=== PATIENT | male | born 1965 | race Caucasian/White ===

== ENCOUNTER 2017-06-01 14:16 | Observation (INO) ==
[2017-06-01] MEDS ORDERED: *HR* Morphine 2 MG/ML SYRINGE IVP ONE (15:13)
--- NOTE | 2017-06-01 15:14 | Emergency Department Note ---
START Narrative - START START: I examined this patient and my medical decision-making was reviewed with the AMMONIA WORKER/PA/Advanced Practice Nurse/Resident Physician. I agree with the documented findings, disposition and treatment plan as described except to the extent set forth below. ED attending: Patient's emergency medicine resident Dr. Dony Rousseau. Please see copy of this note for H&P evaluation and management and ED disposition. We both had independent [id number] time in contact with this patient. Briefly: A 52-year-old male presents to the ER with left lower calf pain since . Diagnosed with a melanoma which was excised a year ago but did not go for follow-up or any further treatment. Denies shortness of breath or chest pain. Denies fever or chills. Denies any inciting factors or trauma. Does not smoke. Has prior history of DVT for unknown reasons. Patient will get an ultrasound and we will also do a CT to check for a metastatic lesion. Disposition pending.
--- NOTE | 2017-06-01 15:33 | Emergency Department Note ---
Disposition Clinical Impression: Cellulitis and abscess of leg Disposition: Admitted As Inpatient Condition: Good Extremity Problem HPI - General Chief complaint: ED Extremity Problem,Nontraumatic Stated complaint: Skin cancer on leg Time Seen by Provider: 06/01/17 14:54 Source: patient Mode of arrival: private vehicle Limitations: no limitations Nursing Notes Reviewed: Yes Vital Signs Reviewed: Yes - History of Present Illness HPI Narrative: 52-year-old male history of diabetes, prior melanoma in the left lower extremity treated with excision with poor follow-up who presents to the ER with a chief complaint of left function any pain. Patient reports pain and swelling since May 28. Denies any trauma. States it has just been enlarging and turning red. He reports a prior history of DVT but it has been several years ago. He is not currently on anticoagulation. Denies any fevers cough sore throat chest pain or shortness of breath. Up-to-date on tetanus. States the wound has been weeping. No other complaints. Pt Subjective Complaint: extremity pain, extremity swelling Onset (ago): day(s) Consistency: constant Injury Location: left, lower extremity Pain Scale: 10 Radiation: none Improves with: rest Worsens with: weight bearing Associated symptoms: Reports: denies other symptoms Context: history of DVT, history of peripheral vascular disease - Related Data Home Medications Medication Instructions Recorded Confirmed Albuterol Sulfate [Proair HFA] 2 puff IH Q4HR PRN 01/14/15 06/01/17 Esomeprazole Magnesium [Nexium] 40 mg PO DAILY 01/14/15 06/01/17 Furosemide [Lasix] 80 mg PO DAILY PRN 01/14/15 06/01/17 Loratadine [Claritin] 10 mg PO DAILY 01/14/15 06/01/17 Metformin [Glucophage] 1,000 mg PO BID 01/14/15 06/01/17 Pravastatin Sodium [Pravachol] 20 mg PO HS 01/14/15 06/01/17 Amlodipine Besylate 10 mg PO DAILY 06/01/17 06/01/17 Aspirin Enteric Coated [Aspirin EC] 81 mg PO DAILY 06/01/17 06/01/17 Divalproex (12 HR) [Depakote (12 1,000 mg PO HS 06/01/17 06/01/17 HR)] Divalproex (12 HR) [Depakote (12 500 mg PO QAM 06/01/17 06/01/17 HR)] Fluticasone/Salmeterol [Advair 1 each IH BID 06/01/17 06/01/17 500-50 Diskus] HYDROcodone/Acet 7.5/325 mg [[place] 1 tab PO BID PRN 06/01/17 06/01/17 7.5-325 mg] Ipratropium [Atrovent Inhaler] 2 puff IH QID 06/01/17 06/01/17 Levothyroxine Sodium 50 mcg PO QAM 06/01/17 06/01/17 Lisinopril-HCTZ 20-12.5 [Prinzide 1 tab PO BID 06/01/17 06/01/17 20-12.5] Oxygen 3 l NS CONT 06/01/17 06/01/17 Polyethylene Glycol 3350 17 gm PO DAILY 06/01/17 06/01/17 Potassium Chloride [K-Tab ER] 20 meq PO DAILY 06/01/17 06/01/17 Pregabalin [Lyrica] 75 mg PO TID 06/01/17 06/01/17 SitaGLIPtin [Januvia] 100 mg PO DAILY 06/01/17 06/01/17 Spironolactone [Aldactone] 100 mg PO DAILY 06/01/17 06/01/17 Trazodone HCl 300 mg PO HS 06/01/17 06/01/17 Allergies Allergy/AdvReac Type Severity Reaction Status Date / Time Penicillins [PCN] Allergy Rash Verified 06/01/17 14:24 All systems ED: reviewed and negative except as stated. Constitutional: Denies: fever, chills Cardiovascular: Denies: chest pain Respiratory: Denies: dyspnea Gastrointestinal: Denies: abdominal pain, nausea, vomiting Integumentary: Reports: lesions Past Medical History - Past Medical History Attestation: Yes The following information was validated with the patient. Source: patient Medical history: Reports: arthritis, cancer, CHF, COPD, diabetes, GERD, hyperlipidemia, hypertension, kidney stones, thyroid disease, venous stasis Surgical history: Reports: other Psychiatric history: Reports: no psych history - Social History Smoking Status: Current every day smoker Smokeless Tobacco Status: No Alcohol use: Reports: none Drug use: Reports: none Physical Exam - General Limitations: no limitations General appearance: alert, in no apparent distress - Head Head exam: atraumatic, normocephalic - Eye Eye exam: Present: normal appearance - ENT ENT exam: normal exam - Neck Neck exam: Present: normal inspection, full ROM - Chest Chest inspection: Present: normal inspection, symmetric chest wall rise - Respiratory Respiratory exam: Present: normal lung sounds bilaterally - Cardiovascular Cardiovascular exam: Present: regular rate, normal rhythm, normal heart sounds - Abdominal Exam Abdominal exam: Present: soft, Non-Tender. Absent: tenderness - Extremities Exam Extremities exam: Present: normal inspection, full ROM - Expanded Upper Extremity Exam Shoulder exam: Present: normal inspection, full ROM Arm exam: Present: normal inspection, full ROM Elbow exam: Present: normal inspection, full ROM Forearm/Wrist exam: Present: normal inspection, full ROM Hand exam: Present: normal inspection, full ROM - Expanded Lower Extremity Exam Hip/Pelvis exam: Present: normal inspection, full ROM Upper leg exam: Present: normal inspection, full ROM Knee exam: Present: normal inspection, full ROM Lower leg exam: Present: full ROM, swelling (There is noted swelling of the left lower extremity distal to the knee with overlying cellulitic changes as well as an area of fluctuance anteriorly. Patient also has tenderness to palpation over the deep system of the left leg.) Ankle exam: Present: full ROM Foot/toe exam: Present: full ROM Neurovascular/Tendon exam: Absent: motor deficit, sensory deficit - Neurological Exam Neurological exam: Present: alert, other (GCS 15. Nonfocal exam.) - Psychiatric Psychiatric exam: Present: normal affect - Skin Skin exam: Present: warm, dry, intact Course Course Narrative: Patient seen and examined. Vital signs reviewed. We will obtain a DVT study as well as a CT scan of the lower extremity to evaluate for abscess versus metastatic process from his primary skin cancer. Patient given IV morphine for pain. - Reevaluation(s) Reevaluation #1: Updated the patient on imaging and labs. He is agreeable with being admitted. - Consultations Consultation #1: I spoke with the on-call orthopedic surgeon Dr. Dasilva. Discussed the patient's history exam imaging and labs. Recommended to start IV antibiotics and admit to the hospitalist service and he will see the patient tomorrow. Vital Signs Temperature 97.6 F 06/01/17 14:20 Pulse Rate 80 06/01/17 14:20 Respiratory Rate 18 06/01/17 14:20 Blood Pressure 98/61 06/01/17 14:20 O2 Sat by Pulse Oximetry 95 06/01/17 14:20 Temperature 98.7 F 06/02/17 07:28 Pulse Rate 69 06/02/17 07:28 Respiratory Rate 16 06/02/17 07:28 Blood Pressure 108/65 06/02/17 07:28 O2 Sat by Pulse Oximetry 94 06/02/17 07:28 Oxygen Delivery Oxygen Delivery Nasal Cannula Extremity Problem, Nontraumati - MDM Narrative Medical decision making narrative: 52-year-old male presents to the ER due to left lower extremity swelling for 4 days. Denies any trauma. History of melanoma around that site that was excised without issue. DVT study negative here. CT scan demonstrates a large abscess collection with overlying cellulitis. Discussed with orthopedic surgery who will see the patient consultation for incision and drainage. IV antibiotics initiated in the ED. Admitted to the hospitalist service. - Lab Data Lab results reviewed: Yes I reviewed the patient's lab results. Result diagrams: 06/02/17 06:08 06/02/17 06:08 Lab Results 06/01/17 06/01/17 06/01/17 Range/Units 15:30 15:30 15:30 WBC 10.7 (4.3-11.1) K/mcL RBC 4.13 L (4.19-5.50) M/mcL Hgb 13.3 (12.9-16.9) g/dL Hct 40.5 (37.5-50.1) % MCV 98.1 (83.0-100.0) fL MCH 32.2 (28.0-33.3) pg MCHC 32.8 (31.6-35.5) g/dL RDW 14.2 (11.5-14.5) % Plt Count 139 L (140-400) K/mcL MPV 11.3 (9.4-12.4) fL Seg Neutrophils % 72.0 % Band Neutrophils % 4.0 (0-4) % Lymphocytes % 14.0 % Monocytes % 10.0 % Neutrophils # 8.1 (1.6-8.9) K/mcL Lymphocytes # 1.5 (0.6-4.6) K/mcL Monocytes # 1.1 (0.0-1.3) K/mcL Reactive Lymphocytes Present A (Not Present) Platelet Estimate Slight Decrease L (Normal) ESR 98 H (0-10) mm/hr Sodium 137 (136-145) mEq/L Potassium 4.6 (3.5-5.1) mEq/L Chloride 107 (98-107) mEq/L Carbon Dioxide 22 L (23-29) mEq/L BUN 32 H (6-20) mg/dL Creatinine 1.11 (0.70-1.30) mg/dL Est GFR ( Amer) > 60 (> 60) Est GFR (Non-Af Amer) > 60 (> 60) BUN/Creatinine Ratio 29 H (6-26) Glucose 151 H (70-105) mg/dL Calculated Osmolality 294 (280-300) Calcium 8.9 (8.6-10.3) mg/dL C-Reactive Protein (Less than 10) mg/L 06/01/17 Range/Units 15:30 WBC (4.3-11.1) K/mcL RBC (4.19-5.50) M/mcL Hgb (12.9-16.9) g/dL Hct (37.5-50.1) % MCV (83.0-100.0) fL MCH (28.0-33.3) pg MCHC (31.6-35.5) g/dL RDW (11.5-14.5) % Plt Count (140-400) K/mcL MPV (9.4-12.4) fL Seg Neutrophils % % Band Neutrophils % (0-4) % Lymphocytes % % Monocytes % % Neutrophils # (1.6-8.9) K/mcL Lymphocytes # (0.6-4.6) K/mcL Monocytes # (0.0-1.3) K/mcL Reactive Lymphocytes (Not Present) Platelet Estimate (Normal) ESR (0-10) mm/hr Sodium (136-145) mEq/L Potassium (3.5-5.1) mEq/L Chloride (98-107) mEq/L Carbon Dioxide (23-29) mEq/L BUN (6-20) mg/dL Creatinine (0.70-1.30) mg/dL Est GFR ( Amer) (> 60) Est GFR (Non-Af Amer) (> 60) BUN/Creatinine Ratio (6-26) Glucose (70-105) mg/dL Calculated Osmolality (280-300) Calcium (8.6-10.3) mg/dL C-Reactive Protein 103 H (Less than 10) mg/L - Radiology Data Radiology results reviewed: Yes I reviewed the patient's radiology results. Lower Extremity CT 06/01/17 15:12 IMPRESSION: 1. Extensive soft tissue edema and skin thickening of the left lower extremity most compatible with cellulitis. There is also a large rim enhancing fluid collection within the anterior subcutaneous tissues at the level of the mid tibia measuring 1.6 x 8.4 x 9.3 cm. Findings most suggestive of abscess. 2. No evidence for osteomyelitis. 3. Tricompartmental osteoarthritis of the knee. 4. Mild osteoarthritis of the midfoot. 5. Chondrocalcinosis of the medial and lateral compartments of the knee. D/ / Brigido Ortiz MD / Brigido Ortiz MD Interpreting Provider: Brigido Ortiz MD S.BDevyn - Kajal Situation: Demographics, MOA Background: Presenting Complaint, Relevant PMH, Meds, & Allergies Assessment: Course and respsone to treatment, Exam Concerns, Patient/Family Expectation, Pertinant Lab Results Recommendation: Barrier(s) to disposition, Recommendation based on pending studies, treatments, or consults S.Linette Report Given to: Dr. Doc Rdz Repor Time: 18:10 (requests nephrology consult)
[2017-06-01 15:42] LABS: Hematocrit 40.5 % (37.5-50.1); Hemoglobin 13.3 g/dL (12.9-16.9); Lymphocytes # 1.5 K/mcL (0.6-4.6); Mean Corpuscular HGB Conc 32.8 g/dL (31.6-35.5); Mean Corpuscular Hemoglobin 32.2 pg (28.0-33.3); Mean Corpuscular Volume 98.1 fL (83.0-100.0); Mean Platelet Volume 11.3 fL (9.4-12.4); Platelet Count 139 K/mcL (140-400); Red Blood Count 4.13 M/mcL (4.19-5.50); Red Cell Distribution Width 14.2 % (11.5-14.5)
[2017-06-01] MEDS ORDERED: Ondansetron 4 MG/2 ML VIAL IVP ONE (15:43)
[2017-06-01 15:50] LABS: BUN/Creatinine Ratio 29 (6-26); Blood Urea Nitrogen 32 mg/dL (6-20); Calcium 8.9 mg/dL (8.6-10.3); Carbon Dioxide 22 mEq/L (23-29); Chloride 107 mEq/L (98-107); Glucose 151 mg/dL (70-105); Osmolality,Calculated 294 (280-300); Potassium 4.6 mEq/L (3.5-5.1); Sodium 137 mEq/L (136-145); eGFR For African Americans > 60 (> 60); eGFR For Non-African Americans > 60 (> 60)
[2017-06-01 16:07] LABS: Monocytes # 1.1 K/mcL (0.0-1.3); Neutrophils # 8.1 K/mcL (1.6-8.9); Platelet Estimate Slight Decrease (Normal); Reactive Lymphocytes Present (Not Present)
[2017-06-01] MEDS ORDERED: Vancomycin 2,000 MG in D5% in Water 500 ML IVPB ONE (17:34)
[2017-06-01] MEDS ORDERED: Clindamycin 600 MG/50 ML 600 MG/50 ML IV.SOLN IVPB ONE (17:34)
[2017-06-01] MEDS ORDERED: Acetaminophen 325 MG TABLET PO PRN (20:23)
[2017-06-01] MEDS ORDERED: Naloxone 0.4 MG/ML INJ IVP PRN (20:23)
--- NOTE | 2017-06-01 20:23 | Internal Med History&Physical ---
<Lauren Bhatt - Last Filed: 06/01/17 21:56> Date of Encounter: 06/01/17 Time of Encounter: 21:56 Assessment and Plan (1) Cellulitis and abscess of leg Current visit: Yes Status: Acute Patient's left lower extremity is swollen, erythematous, and mildly weeping. The patient's left calf and foot is very tender to palpation. CT of LLE shows cellulitis and abscess within the anterior subcutaneous tissues at the level of the mid tibia measuring 1.6 x 8.4 x 9.3 cm. No evidence for osteomyelitis. Venous doppler of LLE is negative for DVT. 1.Orthopedic surgeon will see patient tomorrow morning. 2. Will give IV vancomycin 3. Will give fluids. 4. Will order blood culturesx2. 5. Pain control. (2) Diabetes mellitus Current visit: Yes Status: Acute Will place patient on sliding scale and continue to monitor. Qualifiers: Qualified Code(s): E11.9 - Type 2 diabetes mellitus without complications (3) Emphysema of lung Current visit: Yes Status: Acute Patient complains of SOB. Breathing is better with nasal cannula per patient. Will ordere CXR and DUOneb treatments. Qualifiers: Qualified Code(s): J43.9 - Emphysema, unspecified (4) Melanoma Current visit: Yes Status: Acute Qualifiers: Melanoma location: unspecified site Qualified Code(s): C43.9 - Malignant melanoma of skin, unspecified (5) History of DVT (deep vein thrombosis) Current visit: Yes Status: Acute Will place on DVT prophylaxis. Internal Medicine - H&P: HPI Chief complaint: cellulitis of LLE Admitted From: Emergency Dept History of present illness: Mr. Dunbar is a 52 year old male with a PMHx of cellulitis, DVT, DM, melanoma, PR, and emphysema who presents to the ED for left lower calf pain and swelling. The patient states that he had left calf pain and worsening of lower left leg swelling that started on Jameel rachel. The patient admits his left lower leg and calf is painful to touch, became more swollen over the last few days, and admits more reddening of his left leg. The patient admits fever and chills that started two days ago with a highest temperature of 102. He also admits shortness of breath that is worsening over the last week. The patient admits he is on 3L of oxygen at home. He denies any new numbness or tingling. He denies any recent travel, recent illness, sick contacts, any trauma. He denies any chest pain, difficulty breathing, new cough, congestion, abdominal pain, diarrhea, blood in stool, changes in urination, and any weaknesses. Past Med Surg Social Fam HX - Past Medical History Medical history: arthritis, cancer, cirrhosis, CHF, COPD, CVA, DVT, diabetes, GERD, hyperlipidemia, hypertension, kidney stones, malignancy, myocardial infarction, thyroid disease, venous stasis Psychiatric history: no psych history - Past Surgical History Surgical History: other - Social History Smoking Status: Former smoker Smokeless Tobacco Status: No Alcohol use: none Drug use: none - Family History Mother History Unknown: Yes Adopted: No Living Status: Hx Family Cancer: Yes (Brain cancer) Father History Unknown: Yes Adopted: No Living Status: Hx Family Cancer: Yes (Pancreatic CA) Internal Medicine - H&P: Meds Albuterol Sulfate [Proair HFA] 2 puff IH Q4HR PRN 01/14/15 [History] Esomeprazole Magnesium [Nexium] 40 mg PO DAILY 01/14/15 [History] Furosemide [Lasix] 80 mg PO DAILY PRN 01/14/15 [History] Loratadine [Claritin] 10 mg PO DAILY 01/14/15 [History] Metformin [Glucophage] 1,000 mg PO BID 01/14/15 [History] Pravastatin Sodium [Pravachol] 20 mg PO HS 01/14/15 [History] Amlodipine Besylate 10 mg PO DAILY 06/01/17 [History] Aspirin Enteric Coated [Aspirin EC] 81 mg PO DAILY 06/01/17 [History] Divalproex (12 HR) [Depakote (12 HR)] 1,000 mg PO HS 06/01/17 [History] Divalproex (12 HR) [Depakote (12 HR)] 500 mg PO QAM 06/01/17 [History] Fluticasone/Salmeterol [Advair 500-50 Diskus] 1 each IH BID 06/01/17 [History] HYDROcodone/Acet 7.5/325 mg [[place] 7.5-325 mg] 1 tab PO BID PRN 06/01/17 [ History] Ipratropium [Atrovent Inhaler] 2 puff IH QID 06/01/17 [History] Levothyroxine Sodium 50 mcg PO QAM 06/01/17 [History] Lisinopril-HCTZ 20-12.5 [Prinzide 20-12.5] 1 tab PO BID 06/01/17 [History] Oxygen 3 l NS CONT 06/01/17 [History] Polyethylene Glycol 3350 17 gm PO DAILY 06/01/17 [History] Potassium Chloride [K-Tab ER] 20 meq PO DAILY 06/01/17 [History] Pregabalin [Lyrica] 75 mg PO TID 06/01/17 [History] SitaGLIPtin [Januvia] 100 mg PO DAILY 06/01/17 [History] Spironolactone [Aldactone] 100 mg PO DAILY 06/01/17 [History] Trazodone HCl 300 mg PO HS 06/01/17 [History] 3 Allergy/AdvReac Type Severity Reaction Status Date / Time Penicillins [PCN] Allergy Rash Verified 06/01/17 14:24 All Systems PM: A 10-system review of systems was performed and is negative for pertinent findings except as documented above in the HPI. - Constitutional Vitals: Temp Pulse Resp BP Pulse Ox 98.1 F 72 18 100/63 95 06/01/17 18:58 06/01/17 18:58 06/01/17 18:58 06/01/17 18:58 06/01/17 18:58 General appearance: Present: A&O X 3, morbidly obese. Absent: no acute distress - Head Head exam: Present: atraumatic, normocephalic - Eye Eye exam: Present: PERRL, conjuntiva pink, sclera anicteric Pupils: Present: PERRL - Neck Neck exam general surgery: Present: supple, trachea midline. Absent: lymphadenopathy - Respiratory Respiratory exam: Present: CTAB, wheezes. Absent: accessory muscle use, rales, rhonchi - Expanded Respiratory Exam Location: wheezes: Left, Right - Cardiovascular Cardiovascular exam: Present: RRR, +S1, +S2. Absent: diastolic murmur, gallop, rubs, systolic murmur - GI/Abdominal GI/Abdominal exam: Present: normal bowel sounds, soft, no peritoneal signs. Absent: distended, tenderness - Extremities Exam Extremities exam: Present: calf tenderness, tenderness, warm, radial pulses palpable and symmetrical. Absent: cyanotic, pedal edema - Expanded Lower Extremities Exam Lower Leg exam: Present: ecchymosis, erythema (Left leg), swelling (on the left lower extremity), tenderness (tenderness to palpation on the left calf and foot) . Absent: laceration Ankle exam: Present: swelling, tenderness Foot/Toe exam: Present: erythema, swelling, tenderness Neuro vascular tendon exam: Present: pulse deficit (Dorsalis pedis pulse in the R>L. Left dorsal pedis pulse +1), sensory deficit. Absent: foot drop, motor deficit - Neurological Exam Neurological exam: Present: CN II-XII intact, oriented X3, no focal deficits. Absent: motor sensory deficit, pronater drift, facial droop, speech deficit - Skin Skin exam: Present: dry, intact Internal Med - H&P Results - Labs CBC & Chem 7: 06/01/17 15:30 06/01/17 15:30 <Clair El - Last Filed: 06/01/17 23:20> Date of Encounter: 06/01/17 Internal Medicine - H&P: HPI History of present illness: Mr. Dunbar is a 52 year old male All Systems PM: A 10-system review of systems was performed and is negative for pertinent findings except as documented above in the HPI. - Constitutional Vitals: Temp Pulse Resp BP Pulse Ox 98.1 F 72 18 100/63 98 06/01/17 18:58 06/01/17 18:58 06/01/17 22:57 06/01/17 18:58 06/01/17 22:57 Internal Med - H&P Results - Labs CBC & Chem 7: 06/01/17 15:30 06/01/17 15:30 - Impressions ITS Impressions Chest X-Ray 06/01/17 20:27 IMPRESSION: Left basilar airspace disease, atelectasis or pneumonia. D/ / Sharron Bradley Cha, MD / Sharron Bradley Cha, MD Interpreting Provider: Sharron Bradley Cha, MD - Attending Attestation I examined this patient and my medical decision-making was reviewed with the Resident Physician. I agree with the documented findings, disposition and treatment plan as described except to the extent set forth below. General - AAO x 3 Psych - Appropriate affect/speech. No agitation Eyes - CRYSTAL. Eye lids intact. No scleral icterus Heart - Sinus. RRR. S1 and S2 present. No added HS/murmurs appreciated. No elevated JVD appreciated. Lung - Adequate air entry b/l, No crackles/wheezes appreciated GI - Soft, non-tender. No hepatosplenomegaly/ascites. BS+ - No CVA/suprapubic tenderness or palpable bladder distension Skin - Left edwards erythema and swelling ROS 14 point review of systems reviewed as best as possible given presentation. Pertinent positive or negative as per HPI or otherwise reviewed as negative XR/XR chest 2V IMPRESSION: Left basilar airspace disease, atelectasis or pneumonia. CT/CT lower leg LT w con IMPRESSION: 1. Extensive soft tissue edema and skin thickening of the left lower extremity most compatible with cellulitis. There is also a large rim enhancing fluid collection within the anterior subcutaneous tissues at the level of the mid tibia measuring 1.6 x 8.4 x 9.3 cm. Findings most suggestive of abscess. 2. No evidence for osteomyelitis. 3. Tricompartmental osteoarthritis of the knee. 4. Mild osteoarthritis of the midfoot. 5. Chondrocalcinosis of the medial and lateral compartments of the knee. A/P Cellulitis, Abscess of left edwards - IV vanco, pharmacy to dose with vanco monitoring - NPO after MN, ED consulted ortho for I&D - IVF - IV morphine for pain control DMII Emphysema
[2017-06-01] MEDS ORDERED: D5% in Water 1,000 ML IVC PRN (20:29)
[2017-06-01] MEDS ORDERED: Dextrose Gel 15 GM/37.5 ML TUBE PO PRN ×2 (20:29)
[2017-06-01] MEDS ORDERED: *HR* Dextrose 50 % in Water (Syg) 50 ML SYRINGE IVP PRN (20:29)
[2017-06-01] MEDS ORDERED: Insulin LISPRO 300 UNITS/3 ML VIAL SQ SCH (21:00)
[2017-06-01] MEDS ORDERED: *HR* Morphine 2 MG/ML SYRINGE IVP PRN (21:11)
[2017-06-01] MEDS ORDERED: *HR* HYDROcodone/Acet 7.5/325 mg TABLET PO PRN (21:12)
[2017-06-01] MEDS ORDERED: Furosemide 40 MG TABLET PO PRN (21:12)
[2017-06-01] MEDS ORDERED: NON-FORMULARY MEDICATION 1 EACH EACH (Oxygen [Oxygen] 3 L) NS SCH (21:15)
[2017-06-01] MEDS: Vancomycin 2,000 MG in D5% in Water 500 ML IVPB SCH (22:43)
[2017-06-01] MEDS: 0.9 % Sodium Chloride 1,000 ML IVC SCH (22:44)
[2017-06-01] MEDS: Ipratropium/Albuterol Neb 3 ML IH SCH (22:57)
[2017-06-01] MEDS ORDERED: Divalproex (12 HR) 500 MG TABLET PO SCH (23:30)
[2017-06-01] MEDS ORDERED: traZODone 50 MG TABLET PO SCH (23:30)
[2017-06-01] MEDS: *HR* Heparin 5,000 UNIT/ML VIAL SQ SCH (23:46)
[2017-06-01] MEDS: Pregabalin 75 MG CAPSULE PO SCH (23:47)
[2017-06-02] MEDS ORDERED: Ipratropium 1 PUFF INHALER IH PRN ×2 (00:03→20:08)
[2017-06-02] MEDS: Ipratropium/Albuterol Neb 3 ML IH SCH ×4 (04:03→23:07)
[2017-06-02] MEDS ORDERED: Ipratropium 1 PUFF INHALER IH SCH (05:00)
[2017-06-02] MEDS: *HR* Heparin 5,000 UNIT/ML VIAL SQ SCH ×2 (05:23→16:36)
[2017-06-02 06:40] LABS: Basophils # 0.1 K/mcL (0.0-0.2); Basophils % 1.3 %; Eosinophils # 0.2 K/mcL (0.0-0.6); Hematocrit 39.2 % (37.5-50.1); Hemoglobin 12.9 g/dL (12.9-16.9); Immature Granulocytes % 6.6 % (0-4); Lymphocytes # 2.3 K/mcL (0.6-4.6); Lymphocytes % 22.4 %; Mean Corpuscular HGB Conc 32.9 g/dL (31.6-35.5); Mean Corpuscular Volume 97.3 fL (83.0-100.0); Mean Platelet Volume 11.2 fL (9.4-12.4); Monocytes # 1.2 K/mcL (0.0-1.3); Monocytes % 11.4 %; Neutrophils # 5.7 K/mcL (1.6-8.9); Platelet Count 155 K/mcL (140-400); Red Blood Count 4.03 M/mcL (4.19-5.50); Red Cell Distribution Width 14.2 % (11.5-14.5); Segmented Neutrophils % 56.3 %
[2017-06-02 06:56] LABS: Alanine Aminotransferase 25 Units/L (7-52); Albumin/Globulin Ratio 0.9 (1.1-2.2); Alkaline Phosphatase 47 Units/L (34-104); Aspartate Amino Transferase 19 Units/L (13-39); BUN/Creatinine Ratio 29 (6-26); Bilirubin,Total 0.5 mg/dL (0.3-1.0); Blood Urea Nitrogen 30 mg/dL (6-20); Calcium 8.4 mg/dL (8.6-10.3); Carbon Dioxide 24 mEq/L (23-29); Chloride 109 mEq/L (98-107); Globulin 3.3 g/dL (2.4-3.5); Glucose 80 mg/dL (70-105); Magnesium 2.2 mg/dL (1.6-2.6); Osmolality,Calculated 287 (280-300); Phosphorous 3.4 mg/dL (2.7-4.5); Sodium 136 mEq/L (136-145); Total Protein 6.3 g/dL (6.4-8.9); eGFR For African Americans > 60 (> 60); eGFR For Non-African Americans > 60 (> 60)
[2017-06-02] MEDS: Insulin LISPRO 300 UNITS/3 ML VIAL SQ SCH ×4 (07:33→21:18)
[2017-06-02 08:12] LABS: Platelet Estimate Normal (Normal)
[2017-06-02] MEDS: Pregabalin 75 MG CAPSULE PO SCH ×3 (08:19→21:12)
[2017-06-02] MEDS: Vancomycin 2,000 MG in D5% in Water 500 ML IVPB SCH (08:20)
[2017-06-02] MEDS ORDERED: Loratadine 10 MG TABLET PO SCH (09:00)
[2017-06-02] MEDS ORDERED: Divalproex (12 HR) 500 MG TABLET PO SCH (09:00)
[2017-06-02] MEDS ORDERED: Lisinopril-HCTZ 20-12.5mg TABLET PO SCH (09:00)
[2017-06-02] MEDS ORDERED: Aspirin Enteric Coated 81 MG Tablet PO SCH (09:00)
[2017-06-02] MEDS ORDERED: amLODIPine 5 MG TABLET PO SCH (09:00)
[2017-06-02] MEDS ORDERED: Budesonide/Formoterol 160/4.5 MDI IH SCH (10:00)
--- NOTE | 2017-06-02 13:27 | Internal Med Progress Note ---
Date of Encounter: 06/02/17 Time of Encounter: 13:26 - Assessment and plan (1) Cellulitis and abscess of leg Current Visit: Yes Status: Acute Assessment and plan: Continue vancomycin and Zosyn. IV fluids as needed, patient is not septic but he is NPO. Follow-up blood cultures. Ortho to evaluate patient today. (2) Ulcer of leg due to secondary diabetes Current Visit: No Status: Acute (3) Diabetes mellitus Current Visit: Yes Status: Acute Qualifiers: Diabetes mellitus type: type 2 Diabetes mellitus complication status: with skin complications Diabetes mellitus complication detail: with other skin ulcer Diabetes mellitus fpc insulin use: unspecified intermediate accountant insulin use status Qualified Code(s): E11.622 - Type 2 diabetes mellitus with other skin ulcer; L98.499 - Non-pressure chronic ulcer of skin of other sites with unspecified severity; L98.499 - Non-pressure chronic ulcer of skin of other sites with unspecified severity; L98.499 - Non-pressure chronic ulcer of skin of other sites with unspecified severity; L98.499 - Non-pressure chronic ulcer of skin of other sites with unspecified severity (4) Melanoma Current Visit: Yes Status: Acute Qualifiers: Melanoma location: unspecified site Qualified Code(s): C43.9 - Malignant melanoma of skin, unspecified (5) Emphysema of lung Current Visit: Yes Status: Acute Qualifiers: Emphysema type: unspecified Qualified Code(s): J43.9 - Emphysema, unspecified (6) History of DVT (deep vein thrombosis) Current Visit: Yes Status: Acute - Subjective Interval history: No acute events. He denies pain. States he is hungry would like to eat. Currently NPO for potential for surgery. - Constitutional Vitals: Temp Pulse Resp BP Pulse Ox 98.3 F 57 16 99/55 97 06/02/17 10:46 06/02/17 10:46 06/02/17 10:55 06/02/17 10:46 06/02/17 10:55 Exam: General appearance: Present: A&O X 3, morbidly obese. Absent: no acute distress - Head Head exam: Present: atraumatic, normocephalic - Eye Eye exam: Present: PERRL, conjuntiva pink, sclera anicteric Pupils: Present: PERRL - Neck Neck exam general surgery: Present: supple, trachea midline. Absent: lymphadenopathy - Respiratory Respiratory exam: Present: CTAB, wheezes. Absent: accessory muscle use, rales, rhonchi - Expanded Respiratory Exam Location: wheezes: Left, Right - Cardiovascular Cardiovascular exam: Present: RRR, +S1, +S2. Absent: diastolic murmur, gallop, rubs, systolic murmur - GI/Abdominal GI/Abdominal exam: Present: normal bowel sounds, soft, no peritoneal signs. Absent: distended, tenderness - Extremities Exam Extremities exam: Present: calf tenderness, tenderness, warm, radial pulses palpable and symmetrical. Absent: cyanotic, pedal edema - Expanded Lower Extremities Exam Lower Leg exam: Present: ecchymosis, erythema (Left leg), swelling (on the left lower extremity), tenderness (tenderness to palpation on the left calf and foot) . Absent: laceration Ankle exam: Present: swelling, tenderness Foot/Toe exam: Present: erythema, swelling, tenderness Neuro vascular tendon exam: Present: pulse deficit (Dorsalis pedis pulse in the R>L. Left dorsal pedis pulse +1), sensory deficit. Absent: foot drop, motor deficit - Neurological Exam Neurological exam: Present: CN II-XII intact, oriented X3, no focal deficits. Absent: motor sensory deficit, pronater drift, facial droop, speech deficit - Skin Skin exam: Present: dry, intact Internal Medicine: Result - Labs CBC & Chem 7: 06/02/17 06:08 06/02/17 06:08 Labs: Short CBC 06/02/17 Range/Units 06:08 WBC 10.1 (4.3-11.1) K/mcL Hgb 12.9 (12.9-16.9) g/dL Hct 39.2 (37.5-50.1) % Plt Count 155 (140-400) K/mcL Neutrophils # 5.7 (1.6-8.9) K/mcL BMP 06/02/17 06:08 Sodium 136 Potassium 5.0 Chloride 109 H Carbon Dioxide 24 BUN 30 H Creatinine 1.05 Glucose 80 Calcium 8.4 L Liver Function 06/02/17 Range/Units 06:08 Total Bilirubin 0.5 (0.3-1.0) mg/dL AST 19 (13-39) Units/L ALT 25 (7-52) Units/L Alkaline Phosphatase 47 (34-104) Units/L Albumin 3.0 L (3.5-5.7) g/dL - Impressions Impressions Chest X-Ray 06/01/17 20:27 IMPRESSION: Left basilar airspace disease, atelectasis or pneumonia. D/ / Sharron Bradley Cha, MD / Sharron Bradley Cha, MD Interpreting Provider: Sharron Bradley Cha, MD Consult Discharge Plan - Plan Referrals: Tavo Harkins MD [Primary Care Provider] -
[2017-06-02] MEDS: 0.9 % Sodium Chloride 1,000 ML IVC SCH (16:46)
--- NOTE | 2017-06-02 16:51 | Orthopedic Consult Note ---
Date of Encounter: 06/02/17 Time of Encounter: 16:45 History of Present Illness Chief complaint: Left leg pain and swelling HPI: Mr. Dunbar is a 52 year old male who relates to the somewhat acute and rapidly progressive pain and swelling in the left leg. The patient is at an morbidly obese diabetic with chronic venous stasis. Patient states that the pain and swelling and redness has gotten to the point where it is extremely painful and unrelenting. He was seen and [place] and a CT scan was performed and revealed evidence of a fluid collection in the left mid pretibial area. He is admitted for further evaluation and management. For complete history and physical data please refer to the completed portion of the medical record. Physical examination reveals a markedly obese white male in moderate distress secondary to left leg pain. The right lower extremity shows brawny skin changes consistent with chronic venous stasis disease. Left lower extremity shows a fluctuant erythematous and markedly ruborous fluid collection in the mid pretibial region anteriorly. There are weeping wounds. There are the same brawny changes. CT scan was reviewed and shows tremendous amount of thickened skin and edema with a fluid-filled collection in the pretibial region. No obvious bony or periosteal involvement. Laboratory data includes a normal WBC count with no shift. Sedimentation rate is markedly elevated at 98 and his CRP is 103. Impression: Probable abscess left lower extremity in morbidly obese diabetic ( BMI 52) Recommendation: Discussed the findings with the patient and the treatment options including observation and seeing the response to intravenous antibiotics versus formal incision and drainage to alleviate pressure as well as to more definitively treat the fluid collection which is probably an abscess. Patient understands and has requested we proceed with an incision and drainage. He has signed informed consent for surgery. He has been nothing by mouth and will proceed with surgery today. We discussed potential risks and complications which predominantly revolve around poor wound healing. Thank you very much for allowing me to see and treat Mr. Dunbar. Sincerely, Eugene Dasilva,DO Past Med Surg Social Fam HX - Past Medical History Medical history: arthritis, cancer, CHF, COPD, diabetes, GERD, hyperlipidemia, hypertension, kidney stones, thyroid disease, venous stasis Psychiatric history: no psych history - Past Surgical History Surgical History: other - Social History Smoking Status: Current every day smoker Smokeless Tobacco Status: No Alcohol use: none Drug use: none - Family History Mother History Unknown: Yes Adopted: No Living Status: Hx Family Cancer: Yes (Brain cancer) Father History Unknown: Yes Adopted: No Living Status: Hx Family Cancer: Yes (Pancreatic CA) Medications and Allergies Albuterol Sulfate [Proair HFA] 2 puff IH Q4HR PRN 01/14/15 [History] Esomeprazole Magnesium [Nexium] 40 mg PO DAILY 01/14/15 [History] Furosemide [Lasix] 80 mg PO DAILY PRN 01/14/15 [History] Loratadine [Claritin] 10 mg PO DAILY 01/14/15 [History] Metformin [Glucophage] 1,000 mg PO BID 01/14/15 [History] Pravastatin Sodium [Pravachol] 20 mg PO HS 01/14/15 [History] Amlodipine Besylate 10 mg PO DAILY 06/01/17 [History] Aspirin Enteric Coated [Aspirin EC] 81 mg PO DAILY 06/01/17 [History] Divalproex (12 HR) [Depakote (12 HR)] 1,000 mg PO HS 06/01/17 [History] Divalproex (12 HR) [Depakote (12 HR)] 500 mg PO QAM 06/01/17 [History] Fluticasone/Salmeterol [Advair 500-50 Diskus] 1 each IH BID 06/01/17 [History] HYDROcodone/Acet 7.5/325 mg [[place] 7.5-325 mg] 1 tab PO BID PRN 06/01/17 [ History] Ipratropium [Atrovent Inhaler] 2 puff IH QID 06/01/17 [History] Levothyroxine Sodium 50 mcg PO QAM 06/01/17 [History] Lisinopril-HCTZ 20-12.5 [Prinzide 20-12.5] 1 tab PO BID 06/01/17 [History] Oxygen 3 l NS CONT 06/01/17 [History] Polyethylene Glycol 3350 17 gm PO DAILY 06/01/17 [History] Potassium Chloride [K-Tab ER] 20 meq PO DAILY 06/01/17 [History] Pregabalin [Lyrica] 75 mg PO TID 06/01/17 [History] SitaGLIPtin [Januvia] 100 mg PO DAILY 06/01/17 [History] Spironolactone [Aldactone] 100 mg PO DAILY 06/01/17 [History] Trazodone HCl 300 mg PO HS 06/01/17 [History] 3 Allergy/AdvReac Type Severity Reaction Status Date / Time Penicillins [PCN] Allergy Rash Verified 06/01/17 14:24 All Systems Reviewed: A 10-system review of systems was performed and is negative for pertinent findings except as documented above in the HPI. Physical Exam - Constitutional Vitals: Temp Pulse Resp BP Pulse Ox 98.3 F 57 16 99/55 97 06/02/17 10:46 06/02/17 10:46 06/02/17 10:55 06/02/17 10:46 06/02/17 10:55 Results - Labs Result Diagrams: 06/02/17 06:08 06/02/17 06:08 Labs: Abnormal lab results RBC 4.03 M/mcL (4.19-5.50) L 06/02/17 06:08 Immature Gran % 6.6 % (0-4) H 06/02/17 06:08 Reactive Lymphocytes Present (Not Present) A 06/01/17 15:30 ESR 98 mm/hr (0-10) H 06/01/17 15:30 Chloride 109 mEq/L (98-107) H 06/02/17 06:08 BUN 30 mg/dL (6-20) H 06/02/17 06:08 BUN/Creatinine Ratio 29 (6-26) H 06/02/17 06:08 POC Glucose 93 (58-89) H 06/02/17 11:44 Calcium 8.4 mg/dL (8.6-10.3) L 06/02/17 06:08 C-Reactive Protein 103 mg/L (Less than 10) H 06/01/17 15:30 Serum Total Protein 6.3 g/dL (6.4-8.9) L 06/02/17 06:08 Albumin 3.0 g/dL (3.5-5.7) L 06/02/17 06:08 Albumin/Globulin Ratio 0.9 (1.1-2.2) L 06/02/17 06:08 H & H 06/02/17 Range/Units 06:08 Hgb 12.9 (12.9-16.9) g/dL Hct 39.2 (37.5-50.1) % All other labs normal. - Diagnostic results Knee CT: image reviewed Consult Discharge Plan - Plan Referrals: Tavo Harkins MD [Primary Care Provider] -
[2017-06-02] MEDS ORDERED: *HR* Succinylcholine 200 MG/10 ML VIAL IVP ONE (18:00)
[2017-06-02] MEDS ORDERED: Lidocaine -MPF 2% 2 ML VIAL ONE (18:00)
[2017-06-02] MEDS ORDERED: *HR* Propofol 200 MG/20 ML VIAL IVP ONE (18:01)
[2017-06-02] MEDS ORDERED: Lidocaine -MPF 4% 5 ML AMPUL ONE (18:02)
--- NOTE | 2017-06-02 18:51 | Anesthesia Evaluation PreOp ---
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; mostly resolved) Other Medical History: Hepatic (cirrhosis), Diabetes Type II (oral medications only), Thyroid, GERD, Other (BMI 52, hx melanoma) Anesthesia History: No Prior Anesthetic Complications Alcohol Use: none Drug use: none Medications and Allergies Albuterol Sulfate [Proair HFA] 2 puff IH Q4HR PRN 01/14/15 [History] Esomeprazole Magnesium [Nexium] 40 mg PO DAILY 01/14/15 [History] Furosemide [Lasix] 80 mg PO DAILY PRN 01/14/15 [History] Loratadine [Claritin] 10 mg PO DAILY 01/14/15 [History] Metformin [Glucophage] 1,000 mg PO BID 01/14/15 [History] Pravastatin Sodium [Pravachol] 20 mg PO HS 01/14/15 [History] Amlodipine Besylate 10 mg PO DAILY 06/01/17 [History] Aspirin Enteric Coated [Aspirin EC] 81 mg PO DAILY 06/01/17 [History] Divalproex (12 HR) [Depakote (12 HR)] 1,000 mg PO HS 06/01/17 [History] Divalproex (12 HR) [Depakote (12 HR)] 500 mg PO QAM 06/01/17 [History] Fluticasone/Salmeterol [Advair 500-50 Diskus] 1 each IH BID 06/01/17 [History] HYDROcodone/Acet 7.5/325 mg [[place] 7.5-325 mg] 1 tab PO BID PRN 06/01/17 [ History] Ipratropium [Atrovent Inhaler] 2 puff IH QID 06/01/17 [History] Levothyroxine Sodium 50 mcg PO QAM 06/01/17 [History] Lisinopril-HCTZ 20-12.5 [Prinzide 20-12.5] 1 tab PO BID 06/01/17 [History] Oxygen 3 l NS CONT 06/01/17 [History] Polyethylene Glycol 3350 17 gm PO DAILY 06/01/17 [History] Potassium Chloride [K-Tab ER] 20 meq PO DAILY 06/01/17 [History] Pregabalin [Lyrica] 75 mg PO TID 06/01/17 [History] SitaGLIPtin [Januvia] 100 mg PO DAILY 06/01/17 [History] Spironolactone [Aldactone] 100 mg PO DAILY 06/01/17 [History] Trazodone HCl 300 mg PO HS 06/01/17 [History] 3 Allergy/AdvReac Type Severity Reaction Status Date / Time Penicillins [PCN] Allergy Rash Verified 06/01/17 14:24 - Meds/Allergy Pre-op Review Medications Reviewed: Yes Allergies Reviewed: Yes Beta Blockers on Current Med List: No Anesthesia Results - Labs 06/02/17 06:08 06/02/17 06:08 Anesthesia Exam Last Vital Signs Temp 98.3 F 06/02/17 10:46 Pulse 57 06/02/17 10:46 Resp 16 06/02/17 10:55 BP 99/55 06/02/17 10:46 Pulse Ox 97 06/02/17 10:55 Weight: 165 kg (BMI 52) NPO (# of Hours): > 8 hrs - HEENT Pupil (Motor): Pupils equal, EOMI Mallampati: II Teeth: Edentulous Oral Opening: Greater than 3 - STATEMENT REQUEST CLERK LOC: Oriented - Cardiac Rhythm: Regular Murmur: None - Pulmonary Breath Sounds: bilateral Clear Respiratory Effort: Symmetrical Anesthesia Assess/Plan ASA Score: 4 Modified Ricky Scale for Level of Consciousness: Cooperative, oriented, and tranquil Anesthetic Plan: General Monitoring Plan: Standard Monitors Recovery Plan: PACU
[2017-06-02] MEDS ORDERED: *HR* Midazolam HCl 2 MG/2 ML VIAL ONE (19:05)
[2017-06-02] MEDS ORDERED: Propofol 500 MG/50 ML INFUS..BTL ONE (19:05)
[2017-06-02] MEDS ORDERED: *HR* FentaNYL (PF) 100 MCG/2 ML VIAL ONE (19:05)
--- NOTE | 2017-06-02 19:56 | Operative Note ---
Date of procedure: 06/02/17 Pre-op diagnosis: #1.Abscess left lower extremity #2. Body mass index 52 Post-op diagnosis: same Procedure: Incision and drainage left lower extremity abscess Complications: None Anesthesia: MAC, IV sedation Surgeon: Eugene Dasilva Was there an itinerant teacher assistant present: No Estimated blood loss (cc): 7 Specimen: Cultures Condition: stable Disposition: other (Holding room) Procedure in Detail: Gross findings: Preoperative clinical examination revealed markedly edematous and erythematous left lower extremity would brawny skin changes below the level of the knee. This is associated with a large fluctuant area in the mid anterior tibia region with some weeping wounds. Preoperative CT scan revealed a large fluid collection in the anterior soft tissues. No evidence of bony involvement. Intraoperative findings revealed a large amount of purulent fluid located in a well circumscribed pocket. There was probably 300+ milliliters of material evacuated. No significant necrotic tissue is noted. There was only mild fatty tissue breakdown. No evidence of involvement of the periosteum. Cultures were obtained. Procedure: Patient saying the operating room and administered intravenous sedation by department of anesthesia. Once adequate level of anesthesia had been obtained the left lower extremity was prepped and draped in normal standard fashion for surgery. Utilizing a #15 scalpel blade, a approximately 4 cm incision was created over the mid anterior tibia directly over the fluctuant area. Electrocautery was used to develop the incision into the deeper tissues with a large amount initially of more serous appearing fluid followed by thick purulent material noted predominantly coming from the lateral inferior aspect. Cultures were obtained at this time. Large volume of fluid was evacuated. A well-circumscribed cystic area was noted. This was debrided mechanically as well as copiously irrigated with saline solution. The wound was now packed with inch iodoform packing. Dressings consisting of 4 x 4's, ABDs, Kerlix and Missael wraps were applied and secured. Patient was now transferred from the operating room to the holding room in stable and satisfactory condition. All sponge needle and inspect counts are correct. Specimens for pathology were the intraoperative cultures.
[2017-06-02] MEDS ORDERED: *HR* Dextrose 50 % in Water (Syg) 50 ML SYRINGE IVP PRN (20:08)
[2017-06-02] MEDS ORDERED: Dextrose Gel 15 GM/37.5 ML TUBE PO PRN ×2 (20:08)
[2017-06-02] MEDS ORDERED: D5% in Water 1,000 ML IVC PRN (20:08)
[2017-06-02] MEDS ORDERED: *HR* HYDROcodone/Acet 7.5/325 mg TABLET PO PRN (20:08)
[2017-06-02] MEDS ORDERED: Acetaminophen 325 MG TABLET PO PRN (20:08)
[2017-06-02] MEDS ORDERED: Furosemide 40 MG TABLET PO PRN (20:08)
[2017-06-02] MEDS ORDERED: Naloxone 0.4 MG/ML INJ IVP PRN (20:08)
[2017-06-02] MEDS ORDERED: Vancomycin 2,000 MG in D5% in Water 500 ML IVPB SCH (21:00)
[2017-06-02] MEDS: Lisinopril-HCTZ 20-12.5mg TABLET PO SCH (21:13)
[2017-06-02] MEDS: Divalproex (12 HR) 500 MG TABLET PO SCH (21:13)
[2017-06-02] MEDS: traZODone 50 MG TABLET PO SCH (21:13)
[2017-06-02] MEDS: Budesonide/Formoterol 160/4.5 MDI IH SCH (23:07)
[2017-06-03] MEDS: Ipratropium/Albuterol Neb 3 ML IH SCH ×4 (05:02→22:34)
[2017-06-03] MEDS: *HR* Heparin 5,000 UNIT/ML VIAL SQ SCH ×2 (05:36→17:20)
[2017-06-03 06:07] LABS: Eosinophils # 0.2 K/mcL (0.0-0.6); Hemoglobin 12.3 g/dL (12.9-16.9); Mean Corpuscular HGB Conc 33.2 g/dL (31.6-35.5); Mean Corpuscular Hemoglobin 32.4 pg (28.0-33.3); Mean Corpuscular Volume 97.4 fL (83.0-100.0); Mean Platelet Volume 10.8 fL (9.4-12.4); Platelet Count 162 K/mcL (140-400)
[2017-06-03 06:24] LABS: BUN/Creatinine Ratio 27 (6-26); Blood Urea Nitrogen 26 mg/dL (6-20); Calcium 8.2 mg/dL (8.6-10.3); Carbon Dioxide 27 mEq/L (23-29); Chloride 109 mEq/L (98-107); Glucose 107 mg/dL (70-105); Osmolality,Calculated 289 (280-300); Sodium 137 mEq/L (136-145); eGFR For African Americans > 60 (> 60); eGFR For Non-African Americans > 60 (> 60)
[2017-06-03 06:50] LABS: Lymphocytes # 0.9 K/mcL (0.6-4.6); Monocytes # 0.8 K/mcL (0.0-1.3); Neutrophils # 5.7 K/mcL (1.6-8.9); Platelet Estimate Normal (Normal)
[2017-06-03] MEDS: Insulin LISPRO 300 UNITS/3 ML VIAL SQ SCH ×4 (08:15→21:56)
[2017-06-03] MEDS: *HR* Morphine 2 MG/ML SYRINGE IVP PRN ×2 (08:38→13:40)
[2017-06-03] MEDS: amLODIPine 5 MG TABLET PO SCH (08:40)
[2017-06-03] MEDS: Lisinopril-HCTZ 20-12.5mg TABLET PO SCH ×2 (08:40→20:15)
[2017-06-03] MEDS: Loratadine 10 MG TABLET PO SCH (08:41)
[2017-06-03] MEDS: Aspirin Enteric Coated 81 MG Tablet PO SCH (08:41)
[2017-06-03] MEDS: Pregabalin 75 MG CAPSULE PO SCH ×3 (08:42→20:14)
[2017-06-03] MEDS: Divalproex (12 HR) 500 MG TABLET PO SCH ×2 (08:44→20:14)
[2017-06-03] MEDS: Budesonide/Formoterol 160/4.5 MDI IH SCH ×2 (10:57→22:34)
[2017-06-03] MEDS: Vancomycin 1,500 MG in D5% in Water 250 ML IVPB SCH (12:56)
--- NOTE | 2017-06-03 14:07 | Orthopedics Progress Note ---
Date of Encounter: 06/03/17 Time of Encounter: 14:04 Subjective Principal diagnosis: Abscess left lower leg Interval history: 06/03/2017. Patient is postop day #1, less than 24 hours from incision and drainage of a left lower leg abscess. Large amount of material was evacuated. Patient is feeling very much improved today. Little to no pain. Vital signs are stable. Patient is afebrile. Dressings are clean and dry. Hemoglobin is stable. White blood cell count remains normal. Blood sugars are improved. Intraoperative cultures are pending. Impression: POD #1 I and D left lower leg abscess in obese diabetic Recommendation: Would continue with current intravenous antibiotic use. Will change dressings and remove packing from the wound tomorrow. Should be stable for discharge to home tomorrow with a course of oral antibiotics and local wound care. Hopefully cultures will be available at some point in time tomorrow. Objective Vital signs: Vital Signs Temp Pulse Resp BP Pulse Ox 06/03/17 11:29 97.5 F L 71 16 125/75 94 06/03/17 09:07 93 06/03/17 06:45 98.5 F 74 16 98/63 93 06/03/17 05:02 14 91 06/03/17 04:27 98.6 F 66 18 94/57 93 06/02/17 23:15 97.9 F 63 16 94/53 95 06/02/17 23:00 97.9 F 63 16 94/53 95 06/02/17 22:15 97.9 F 58 16 86/50 95 06/02/17 21:15 97.6 F 67 14 96/55 95 06/02/17 20:45 98.0 F 67 14 95/58 94 06/02/17 20:15 97.8 F 65 17 122/75 96 06/02/17 20:00 95 06/02/17 19:50 97.5 F L 96 17 143/84 95 Intake and Output 06/02/17 06/03/17 06/03/17 23:59 07:59 15:59 Intake Total 600 / 600 120 / 120 Output Total 332 / 332 Balance -332 / -332 600 / 600 120 / 120 Intake: Oral 600 / 600 120 / 120 Output: Urine 325 / 325 Estimated Blood Loss Other: # Voids 2 Blood Glucose* 85 112 97 - Labs CBC & BMP: 06/03/17 05:43 06/03/17 05:43 Labs: Abnormal lab results RBC 3.80 M/mcL (4.19-5.50) L 06/03/17 05:43 Hgb 12.3 g/dL (12.9-16.9) L 06/03/17 05:43 Hct 37.0 % (37.5-50.1) L 06/03/17 05:43 Immature Gran % 6.6 % (0-4) H 06/02/17 06:08 Reactive Lymphocytes Present (Not Present) A 06/01/17 15:30 ESR 98 mm/hr (0-10) H 06/01/17 15:30 Chloride 109 mEq/L (98-107) H 06/03/17 05:43 BUN 26 mg/dL (6-20) H 06/03/17 05:43 BUN/Creatinine Ratio 27 (6-26) H 06/03/17 05:43 Glucose 107 mg/dL (70-105) H 06/03/17 05:43 POC Glucose 97 (58-89) H 06/03/17 11:37 Calcium 8.2 mg/dL (8.6-10.3) L 06/03/17 05:43 C-Reactive Protein 103 mg/L (Less than 10) H 06/01/17 15:30 Serum Total Protein 6.3 g/dL (6.4-8.9) L 06/02/17 06:08 Albumin 3.0 g/dL (3.5-5.7) L 06/02/17 06:08 Albumin/Globulin Ratio 0.9 (1.1-2.2) L 06/02/17 06:08 Consult Discharge Plan - Plan Referrals: Tavo Harkins MD [Primary Care Provider] -
[2017-06-03] MEDS: traZODone 50 MG TABLET PO SCH (20:14)
[2017-06-04] MEDS: Vancomycin 1,500 MG in D5% in Water 250 ML IVPB SCH ×2 (00:17→11:34)
[2017-06-04] MEDS: *HR* Morphine 2 MG/ML SYRINGE IVP PRN (00:21)
[2017-06-04] MEDS: Ipratropium/Albuterol Neb 3 ML IH SCH ×2 (04:42→10:03)
[2017-06-04] MEDS: *HR* Heparin 5,000 UNIT/ML VIAL SQ SCH (05:23)
[2017-06-04 06:39] LABS: Basophils % 0.5 %; Eosinophils # 0.2 K/mcL (0.0-0.6); Eosinophils % 2.6 %; Hematocrit 38.9 % (37.5-50.1); Hemoglobin 12.3 g/dL (12.9-16.9); Immature Granulocytes % 12.2 % (0-4); Lymphocytes # 1.9 K/mcL (0.6-4.6); Lymphocytes % 28.3 %; Mean Corpuscular HGB Conc 31.6 g/dL (31.6-35.5); Mean Corpuscular Hemoglobin 31.6 pg (28.0-33.3); Mean Platelet Volume 10.9 fL (9.4-12.4); Monocytes # 0.7 K/mcL (0.0-1.3); Monocytes % 10.8 %; Platelet Count 177 K/mcL (140-400); Red Blood Count 3.89 M/mcL (4.19-5.50); Red Cell Distribution Width 14.2 % (11.5-14.5); Segmented Neutrophils % 45.6 %
[2017-06-04 06:44] LABS: BUN/Creatinine Ratio 22 (6-26); Blood Urea Nitrogen 26 mg/dL (6-20); Calcium 8.7 mg/dL (8.6-10.3); Carbon Dioxide 29 mEq/L (23-29); Chloride 107 mEq/L (98-107); Glucose 100 mg/dL (70-105); Osmolality,Calculated 293 (280-300); Potassium 5.8 mEq/L (3.5-5.1); Sodium 139 mEq/L (136-145); eGFR For African Americans > 60 (> 60); eGFR For Non-African Americans > 60 (> 60)
[2017-06-04 07:34] LABS: Large Platelets Present (Not Present); Platelet Estimate Normal (Normal)
[2017-06-04] MEDS: Insulin LISPRO 300 UNITS/3 ML VIAL SQ SCH ×2 (09:26→11:51)
[2017-06-04] MEDS: Pregabalin 75 MG CAPSULE PO SCH (09:33)
[2017-06-04] MEDS: amLODIPine 5 MG TABLET PO SCH (09:34)
[2017-06-04] MEDS: Aspirin Enteric Coated 81 MG Tablet PO SCH (09:34)
[2017-06-04] MEDS: Loratadine 10 MG TABLET PO SCH (09:34)
[2017-06-04] MEDS: Lisinopril-HCTZ 20-12.5mg TABLET PO SCH (09:34)
[2017-06-04] MEDS: Divalproex (12 HR) 500 MG TABLET PO SCH (09:34)
[2017-06-04] MEDS ORDERED: Furosemide 40 MG TABLET PO PRN (09:38)
--- NOTE | 2017-06-04 09:41 | Orthopedics Progress Note ---
Date of Encounter: 06/04/17 Time of Encounter: 09:34 Subjective Principal diagnosis: Abscess left lower leg Interval history: 06/03/2017. Patient is postop day #1, less than 24 hours from incision and drainage of a left lower leg abscess. Large amount of material was evacuated. Patient is feeling very much improved today. Little to no pain. Vital signs are stable. Patient is afebrile. Dressings are clean and dry. Hemoglobin is stable. White blood cell count remains normal. Blood sugars are improved. Intraoperative cultures are pending. Impression: POD #1 I and D left lower leg abscess in obese diabetic Recommendation: Would continue with current intravenous antibiotic use. Will change dressings and remove packing from the wound tomorrow. Should be stable for discharge to home tomorrow with a course of oral antibiotics and local wound care. Hopefully cultures will be available at some point in time tomorrow. 06/04/2017. Patient is postop day #2 from I and D of the left lower extremity abscess. He is feeling well. Vital signs are stable. Patient is afebrile. Dressings were removed and packing was also removed. Predominantly serous drainage noted. Wound is healthy. No active drainage. Swelling has diminished. Skin remains quite ruborous. White count is normal hemoglobin remained stable. Operative cultures are not available though a preliminary is suggestive of Streptococcus. This is consistent with his clinical picture. A more definitive answer will be available a little bit later today, I spoke with microbiology and if a strep species is identified they will do definitive sensitivities. Impression: POD #2 I&D left lower extremity Recommendation: Would continue with the IV antibiotics until culture results are back or if patient is adamant about leaving would send on oral antibiotics that would offer strep coverage. This may be a little bit difficult in light of his penicillin allergy. Would recommend the patient follow-up with wound care as no further surgical intervention should be required but wound care is anticipated for an extended period of time due to the patient's diabetes, venous stasis and large size in addition to the current infection. The patient will follow up with me only on an as-needed basis. Objective Vital signs: Vital Signs Temp Pulse Resp BP Pulse Ox 06/04/17 06:49 98.1 F 57 18 94/52 98 06/04/17 04:43 18 97 06/03/17 19:35 97.5 F L 60 16 99/59 92 06/03/17 17:12 97.5 F L 59 16 95/62 95 06/03/17 16:37 18 94 06/03/17 11:29 97.5 F L 71 16 125/75 94 06/03/17 10:57 16 93 Intake and Output 06/03/17 06/04/17 06/04/17 23:59 07:59 15:59 Intake Total 250 / 250 Output Total 300 / 300 400 / 400 Balance -300 / -300 -150 / -150 Intake: IV Fluids 250 / 250 Vancocin 1,500 MG In Dextrose 5 250 / 250 % 250 ML @ 166.67 mls/hr IVPB Q12H ZULEMA Rx#:[id number] Output: Urine 300 / 300 400 / 400 Other: Blood Glucose* 116 117 - Labs CBC & BMP: 06/04/17 05:11 06/04/17 05:11 Labs: Abnormal lab results RBC 3.89 M/mcL (4.19-5.50) L 06/04/17 05:11 Hgb 12.3 g/dL (12.9-16.9) L 06/04/17 05:11 Immature Gran % 12.2 % (0-4) H 06/04/17 05:11 Reactive Lymphocytes Present (Not Present) A 06/01/17 15:30 Large Platelets Present (Not Present) A 06/04/17 05:11 ESR 98 mm/hr (0-10) H 06/01/17 15:30 Potassium 5.8 mEq/L (3.5-5.1) H 06/04/17 05:11 BUN 26 mg/dL (6-20) H 06/04/17 05:11 POC Glucose 116 (58-89) H 06/03/17 20:53 C-Reactive Protein 103 mg/L (Less than 10) H 06/01/17 15:30 Serum Total Protein 6.3 g/dL (6.4-8.9) L 06/02/17 06:08 Albumin 3.0 g/dL (3.5-5.7) L 06/02/17 06:08 Albumin/Globulin Ratio 0.9 (1.1-2.2) L 06/02/17 06:08 Consult Discharge Plan - Plan Referrals: Tavo Harkins MD [Primary Care Provider] -
[2017-06-04] MEDS: Budesonide/Formoterol 160/4.5 MDI IH SCH (10:03)
[2017-06-04 11:36] VITALS: BP 110/67
--- NOTE | 2017-06-04 11:55 | Discharge Summary ---
Date of Encounter: 06/04/17 Time of Encounter: 11:47 - Discharge Diagnosis (1) Cellulitis and abscess of leg Priority: Primary Status: Acute (2) Ulcer of leg due to secondary diabetes Priority: Secondary Status: Acute (3) Diabetes mellitus Priority: Secondary Status: Acute Qualifiers: Diabetes mellitus type: type 2 Diabetes mellitus complication status: with skin complications Diabetes mellitus complication detail: with other skin ulcer Diabetes mellitus group home insulin use: unspecified group home insulin use status Qualified Code(s): E11.622 - Type 2 diabetes mellitus with other skin ulcer; L98.499 - Non-pressure chronic ulcer of skin of other sites with unspecified severity; L98.499 - Non-pressure chronic ulcer of skin of other sites with unspecified severity; L98.499 - Non-pressure chronic ulcer of skin of other sites with unspecified severity; L98.499 - Non-pressure chronic ulcer of skin of other sites with unspecified severity (4) Melanoma Priority: Secondary Status: Acute Qualifiers: Melanoma location: unspecified site Qualified Code(s): C43.9 - Malignant melanoma of skin, unspecified (5) Emphysema of lung Priority: Secondary Status: Acute Qualifiers: Emphysema type: unspecified Qualified Code(s): J43.9 - Emphysema, unspecified (6) History of DVT (deep vein thrombosis) Priority: Secondary Status: Acute - Discharge Medications Prescriptions: Doxycycline 100 mg PO BID #28 capsule Furosemide [Lasix] 20 mg PO DAILY #3 tablet Levofloxacin [Levaquin] 750 mg PO DAILY 14 Days #14 tablet Home Medications: Albuterol Sulfate [Proair HFA] 2 puff IH Q4HR PRN 01/14/15 [History] Esomeprazole Magnesium [Nexium] 40 mg PO DAILY 01/14/15 [History] Furosemide [Lasix] 80 mg PO DAILY PRN 01/14/15 [History] Loratadine [Claritin] 10 mg PO DAILY 01/14/15 [History] Metformin [Glucophage] 1,000 mg PO BID 01/14/15 [History] Pravastatin Sodium [Pravachol] 20 mg PO HS 01/14/15 [History] Amlodipine Besylate 10 mg PO DAILY 06/01/17 [History] Aspirin Enteric Coated [Aspirin EC] 81 mg PO DAILY 06/01/17 [History] Divalproex (12 HR) [Depakote (12 HR)] 1,000 mg PO HS 06/01/17 [History] Divalproex (12 HR) [Depakote (12 HR)] 500 mg PO QAM 06/01/17 [History] Fluticasone/Salmeterol [Advair 500-50 Diskus] 1 each IH BID 06/01/17 [History] HYDROcodone/Acet 7.5/325 mg [[place] 7.5-325 mg] 1 tab PO BID PRN 06/01/17 [ History] Ipratropium [Atrovent Inhaler] 2 puff IH QID 06/01/17 [History] Levothyroxine Sodium 50 mcg PO QAM 06/01/17 [History] Lisinopril-HCTZ 20-12.5 [Prinzide 20-12.5] 1 tab PO BID 06/01/17 [History] Oxygen 3 l NS CONT 06/01/17 [History] Polyethylene Glycol 3350 17 gm PO DAILY 06/01/17 [History] Potassium Chloride [K-Tab ER] 20 meq PO DAILY 06/01/17 [History] Pregabalin [Lyrica] 75 mg PO TID 06/01/17 [History] SitaGLIPtin [Januvia] 100 mg PO DAILY 06/01/17 [History] Spironolactone [Aldactone] 100 mg PO DAILY 06/01/17 [History] Trazodone HCl 300 mg PO HS 06/01/17 [History] Doxycycline 100 mg PO BID #28 capsule 06/04/17 [Rx] Furosemide [Lasix] 20 mg PO DAILY #3 tablet 06/04/17 [Rx] Levofloxacin [Levaquin] 750 mg PO DAILY 14 Days #14 tablet 06/04/17 [Rx] Allergies/Adverse Reactions: 3 Allergy/AdvReac Type Severity Reaction Status Date / Time Penicillins [PCN] Allergy Rash Verified 06/01/17 14:24 Date of admission: 06/01/17 18:15 Primary care physician: Tavo Harkins MD Discharging clinician: Yuri Christiansen - Patient Status Disposition: Left Against Medical Advice Condition: Good Functional capacity at discharge: independent ambulation Overall status at discharge: patient is not back to baseline - Ambulatory Orders Ambulatory Orders: Basic Metabolic Panel [CHEM] Time Frame: 3 Days, Facility: [facility], Location: Lab - Discharge Instructions Follow Up With: Tavo Harkins MD [Primary Care Provider] - - Diet and Activity Activity: increase activity as tolerated Diet: diabetic diet Hospital course: Mr. Dunbar is a 52 year old male with a PMHx of PCN allergy, cellulitis, DVT, DM, melanoma, [place], and emphysema who presents to the ED for left lower calf pain and swelling. The patient states that he had left calf pain and worsening of lower left leg swelling that started on Jameel rachel. The patient admits his left lower leg and calf is painful to touch, became more swollen over the last few days, and admits more reddening of his left leg. The patient admits fever and chills that started two days ago with a highest temperature of 102. He also admits shortness of breath that is worsening over the last week. Patient's left lower extremity is swollen, erythematous, and mildly weeping. The patient' s left calf and foot is very tender to palpation. CT of LLE shows cellulitis and abscess within the anterior subcutaneous tissues at the level of the mid tibia measuring 1.6 x 8.4 x 9.3 cm. No evidence for osteomyelitis. Venous doppler of LLE was negative for DVT. Wound cultures taken, blood cultures taken. Patient was started on vancomycin and Zosyn. Ortho evaluated patient, and patient underwent I&D on 06/02/17. He tolerated procedure well. Plan was to continue IV antibiotics until culture results were back, but patient was insistent on leaving. On the same morning 9am 05/25 prelim culture grew GBS. Potassium was elevated at 5.8 and creatinine increased from 0.95 to 1.2 ( baseline 0.9-1.1) and because this and sensitivities, it was recommended patient get closely monitored. He refused and accepted risks of leaving with elevated potassium, slight bump in creatinine, and possibility of inadequate antibiotic coverage. He was afebrile, hemodynamically stable, and had no leukocytosis. Ideally, would like to continue IV antibiotics until sensitivities returned and monitor potassium but patient wanted to leave. He left A Due to penicillin allergy and growth of GBS, he was prescribed Levaquin to cover GBS and Doxycycline to broaden cellulitis coverage. He was given dose of kayexalate, his potassium supplement was held. He was edematous in both lower extremities especially at the cellulitis region. Also he was lower-normal blood pressures here 94-110/52-67 so K sparing Prinzide was held. He was prescribed Lasix 20 mg PO for three days and advised checking BMP in 3 days. He was encouraged to follow-up with PCP at next available appointment. - Time Spent with Patient Total time spent providing and/or coordinating discharge services: - Constitutional Vitals: Temp Pulse Resp BP Pulse Ox 98.5 F 68 16 110/67 97 06/04/17 11:35 06/04/17 11:35 06/04/17 11:35 06/04/17 11:35 06/04/17 11:35 General appearance: Present: A&O X 3, morbidly obese. Absent: no acute distress Exam: - Head Head exam: Present: atraumatic, normocephalic - Eye Eye exam: Present: PERRL, conjuntiva pink, sclera anicteric Pupils: Present: PERRL - Neck Neck exam general surgery: Present: supple, trachea midline. Absent: lymphadenopathy - Respiratory Respiratory exam: Present: CTAB, wheezes. Absent: accessory muscle use, rales, rhonchi - Expanded Respiratory Exam Location: wheezes: Left, Right - Cardiovascular Cardiovascular exam: Present: RRR, +S1, +S2. Absent: diastolic murmur, gallop, rubs, systolic murmur - GI/Abdominal GI/Abdominal exam: Present: normal bowel sounds, soft, no peritoneal signs. Absent: distended, tenderness - Extremities Exam Extremities exam: Present: calf tenderness, tenderness, warm, radial pulses palpable and symmetrical. Absent: cyanotic, pedal edema - Expanded Lower Extremities Exam Lower Leg exam: Present: ecchymosis, erythema (Left leg), swelling (on the left lower extremity), tenderness (tenderness to palpation on the left calf and foot) . Absent: laceration Ankle exam: Present: swelling, tenderness Foot/Toe exam: Present: erythema, swelling, tenderness Neuro vascular tendon exam: Present: pulse deficit (Dorsalis pedis pulse in the R>L. Left dorsal pedis pulse +1), sensory deficit. Absent: foot drop, motor deficit
[2017-06-04 13:56] LABS: BUN/Creatinine Ratio 21 (6-26); Blood Urea Nitrogen 23 mg/dL (6-20); Calcium 8.6 mg/dL (8.6-10.3); Carbon Dioxide 23 mEq/L (23-29); Chloride 107 mEq/L (98-107); Glucose 104 mg/dL (70-105); Osmolality,Calculated 284 (280-300); Potassium 5.2 mEq/L (3.5-5.1); Sodium 135 mEq/L (136-145); eGFR For African Americans > 60 (> 60); eGFR For Non-African Americans > 60 (> 60)
[2017-06-04] MEDS ORDERED: Aminoglycoside Consult 1 EACH MC ONE (14:59)
--- NOTE | 2017-06-04 21:58 | Internal Med Progress Note ---
Date of Encounter: 06/03/17 Time of Encounter: 09:55 - Assessment and plan (1) Cellulitis and abscess of leg Status: Acute Assessment and plan: POD#1 s/p I&D of left leg abscess with cellulitis. Continue vancomycin and Zosyn. IV fluids as needed, patient is not septic but is high risk and needs close monitoring with broad spectrum IV antibiotics. (2) Ulcer of leg due to secondary diabetes Status: Acute (3) Diabetes mellitus Status: Acute Qualifiers: Diabetes mellitus type: type 2 Diabetes mellitus complication status: with skin complications Diabetes mellitus complication detail: with other skin ulcer Diabetes mellitus fci insulin use: unspecified fci insulin use status Qualified Code(s): E11.622 - Type 2 diabetes mellitus with other skin ulcer; L98.499 - Non-pressure chronic ulcer of skin of other sites with unspecified severity; L98.499 - Non-pressure chronic ulcer of skin of other sites with unspecified severity; L98.499 - Non-pressure chronic ulcer of skin of other sites with unspecified severity; L98.499 - Non-pressure chronic ulcer of skin of other sites with unspecified severity (4) Melanoma Status: Acute Qualifiers: Melanoma location: unspecified site Qualified Code(s): C43.9 - Malignant melanoma of skin, unspecified (5) Emphysema of lung Status: Acute Qualifiers: Emphysema type: unspecified Qualified Code(s): J43.9 - Emphysema, unspecified (6) History of DVT (deep vein thrombosis) Status: Acute - Subjective Interval history: No acute events. He denies pain. POD #1 s/p left leg abscess I&D - Constitutional Vitals: Temp Pulse Resp BP Pulse Ox 98.5 F 68 16 110/67 97 06/04/17 11:35 06/04/17 11:35 06/04/17 11:35 06/04/17 11:35 06/04/17 11:35 General appearance: Present: A&O X 3, morbidly obese. Absent: no acute distress Exam: - Eye Eye exam: Present: PERRL, conjuntiva pink, sclera anicteric Pupils: Present: PERRL - Neck Neck exam general surgery: Present: supple, trachea midline. Absent: lymphadenopathy - Respiratory Respiratory exam: Present: CTAB, wheezes. Absent: accessory muscle use, rales, rhonchi - Expanded Respiratory Exam Location: wheezes: Left, Right - Cardiovascular Cardiovascular exam: Present: RRR, +S1, +S2. Absent: diastolic murmur, gallop, rubs, systolic murmur - GI/Abdominal GI/Abdominal exam: Present: normal bowel sounds, soft, no peritoneal signs. Absent: distended, tenderness - Extremities Exam Extremities exam: Present: calf tenderness, tenderness, warm, radial pulses palpable and symmetrical. Absent: cyanotic, pedal edema - Expanded Lower Extremities Exam Lower Leg exam: Present: ecchymosis, erythema (Left leg), swelling (on the left lower extremity), tenderness (tenderness to palpation on the left calf and foot) . Absent: laceration Ankle exam: Present: swelling, tenderness Foot/Toe exam: Present: erythema, swelling, tenderness Neuro vascular tendon exam: Present: pulse deficit (Dorsalis pedis pulse in the R>L. Left dorsal pedis pulse +1), sensory deficit. Absent: foot drop, motor deficit Internal Medicine: Result - Labs CBC & Chem 7: 06/04/17 05:11 06/04/17 13:35 Labs: Short CBC 06/04/17 Range/Units 05:11 WBC 6.6 (4.3-11.1) K/mcL Hgb 12.3 L (12.9-16.9) g/dL Hct 38.9 (37.5-50.1) % Plt Count 177 (140-400) K/mcL Neutrophils # 3.0 (1.6-8.9) K/mcL BMP 06/04/17 06/04/17 05:11 13:35 Sodium 139 135 L Potassium 5.8 H 5.2 H Chloride 107 107 Carbon Dioxide 29 23 BUN 26 H 23 H Creatinine 1.20 1.07 Glucose 100 104 Calcium 8.7 8.6 Consult Discharge Plan - Plan Instructions: Diabetes Mellitus Type 2 in Adults (DC), Chronic Obstructive Pulmonary Disease (DC) Referrals: Tavo Harkins MD [Primary Care Provider] - Prescriptions: Doxycycline 100 mg PO BID #28 capsule Furosemide [Lasix] 20 mg PO DAILY #3 tablet Levofloxacin [Levaquin] 750 mg PO DAILY 14 Days #14 tablet
== END 2017-06-04 15:00 | disposition left against medical advice (07) ==
LOC: 3NENU 14:16 → EMEROO 14:16 → 3NENU 18:55
PROVIDERS: ADMIT Internal Medicine Nephrology; ATTEND Internal Medicine

== ENCOUNTER 2019-05-31 15:21 | Observation (INO) ==
[2019-06-01 01:00] LABS: Basophils # 0.1 K/mcL (0.0-0.2); Basophils % 0.8 %; Eosinophils # 0.3 K/mcL (0.0-0.6); Eosinophils % 2.7 %; Hematocrit 44.4 % (37.5-50.1); Hemoglobin 14.7 g/dL (12.9-16.9); Immature Granulocytes % 1.8 % (0-4); Lymphocytes # 2.5 K/mcL (0.6-4.6); Lymphocytes % 24.8 %; Mean Corpuscular HGB Conc 33.1 g/dL (31.6-35.5); Mean Corpuscular Hemoglobin 33.8 pg (28.0-33.3); Mean Corpuscular Volume 102.1 fL (83.0-100.0); Mean Platelet Volume 11.3 fL (9.4-12.4); Monocytes # 0.9 K/mcL (0.0-1.3); Monocytes % 8.8 %; Neutrophils # 6.1 K/mcL (1.6-8.9); Platelet Count 133 K/mcL (140-400); Red Blood Count 4.35 M/mcL (4.19-5.50); Red Cell Distribution Width 14.1 % (11.5-14.5); Segmented Neutrophils % 61.1 %
[2019-06-01 01:15] LABS: BUN/Creatinine Ratio 26 (6-26); Blood Urea Nitrogen 23 mg/dL (6-20); Calcium 9.3 mg/dL (8.6-10.3); Carbon Dioxide 21 mEq/L (23-29); Chloride 111 mEq/L (98-107); Glucose 139 mg/dL (70-105); Osmolality,Calculated 294 (280-300); Potassium 3.9 mEq/L (3.5-5.1); Sodium 139 mEq/L (136-145); eGFR For African Americans > 60 (> 60); eGFR For Non-African Americans > 60 (> 60)
[2019-06-01 01:25] LABS: Bilirubin,Urine Small (Negative); Blood,Urine Negative (Negative); Clarity,Urine Clear (Clear); Color,Urine Yellow (Yellow); Glucose,Urine (UA) Normal (Normal); Ketones,Urine Negative (Negative); Leukocyte Esterase,Urine Negative (Negative); Nitrite,Urine Negative (Negative); PH,Urine 6.5 pH Units (5.0-8.0); Protein,Urine Negative (Neg-Trace); Specific Gravity,Urine 1.022 (1.010-1.025); Urobilinogen,Urine Normal (Normal)
[2019-06-01] MEDS ORDERED: Ipratropium 1 PUFF INHALER IH PRN (03:37)
[2019-06-01] MEDS ORDERED: Furosemide 20 MG TABLET PO PRN (03:37)
[2019-06-01] MEDS ORDERED: Dextrose Gel 15 GM/37.5 ML TUBE PO PRN ×2 (04:05)
[2019-06-01] MEDS ORDERED: D5% in Water 1,000 ML IVC PRN (04:05)
[2019-06-01] MEDS ORDERED: *HR* Dextrose 50 % in Water (Syg) 50 ML SYRINGE IVP PRN (04:05)
[2019-06-01] MEDS ORDERED: Naloxone 0.4 MG/ML INJ IVP PRN (04:08)
[2019-06-01] MEDS: traZODone 50 MG TABLET PO SCH ×2 (04:08→21:14)
[2019-06-01] MEDS: Gabapentin 100 MG CAPSULE PO SCH ×2 (04:08→21:14)
[2019-06-01] MEDS ORDERED: *HR* Promethazine 25 MG/ML VIAL IVP PRN (04:11)
[2019-06-01] MEDS: *HR* Heparin 5,000 UNIT/ML VIAL SQ SCH ×3 (05:41→21:13)
[2019-06-01] MEDS: Aspirin Enteric Coated 81 MG Tablet PO SCH (08:01)
[2019-06-01] MEDS: *HR* SitaGLIPtin 100 MG TABLET PO SCH (08:01)
[2019-06-01] MEDS: Pantoprazole 40 MG VIAL IVP SCH (08:02)
[2019-06-01] MEDS: Insulin LISPRO 300 UNITS/3 ML VIAL SQ SCH ×4 (08:02→21:59)
[2019-06-01] MEDS: amLODIPine 5 MG TABLET PO SCH (08:09)
[2019-06-01] MEDS: Budesonide/Formoterol 160/4.5 1 PUFF INH IH SCH (20:13)
[2019-06-01] MEDS: *HR* HYDROcodone/Acet 7.5/325 mg TABLET PO PRN (21:14)
[2019-06-02 00:57] LABS: Adenovirus Not Detected (Not Detect); Bordetella Pertussis Not Detected (Not Detect); Chlamydophila pneumoniae Not Detected (Not Detect); Coronavirus 229E Not Detected (Not Detect); Coronavirus HKU1 Not Detected (Not Detect); Coronavirus NL63 Not Detected (Not Detect); Coronavirus OC43 Not Detected (Not Detect); Human Metapneumovirus Not Detected (Not Detect); Human Rhinovirus/Enterovirus Not Detected (Not Detect); Influenza A Subtype 2009 H1 Not Detected (Not Detect); Influenza A Untypeable Not Detected (Not Detect); Influenza B Not Detected (Not Detect); Mycoplasma pneumoniae Not Detected (Not Detect); Parainfluenza Virus 1 Not Detected (Not Detect); Parainfluenza Virus 2 Not Detected (Not Detect); Parainfluenza Virus 3 Not Detected (Not Detect); Parainfluenza Virus 4 Not Detected (Not Detect); Respiratory Syncytial Virus DETECTED (Not Detect)
[2019-06-02 06:13] LABS: Hematocrit 39.8 % (37.5-50.1); Hemoglobin 13.5 g/dL (12.9-16.9); Mean Corpuscular HGB Conc 33.9 g/dL (31.6-35.5); Mean Corpuscular Hemoglobin 33.8 pg (28.0-33.3); Mean Corpuscular Volume 99.5 fL (83.0-100.0); Mean Platelet Volume 11.5 fL (9.4-12.4); Platelet Count 138 K/mcL (140-400); Red Cell Distribution Width 14.3 % (11.5-14.5); White Blood Count 7.7 K/mcL (4.3-11.1)
[2019-06-02 06:22] LABS: BUN/Creatinine Ratio 21 (6-26); Blood Urea Nitrogen 20 mg/dL (6-20); Calcium 8.5 mg/dL (8.6-10.3); Carbon Dioxide 24 mEq/L (23-29); Chloride 109 mEq/L (98-107); Chol/HDL Ratio 2.8 (0-4.9); Cholesterol 111 mg/dL (< 200); Glucose 124 mg/dL (70-105); HDL Cholesterol 39 mg/dL (40-59); LDL Cholesterol,Calculated 52 mg/dL (0-99); Osmolality,Calculated 294 (280-300); Phosphorous 3.2 mg/dL (2.7-4.5); Potassium 3.5 mEq/L (3.5-5.1); Sodium 140 mEq/L (136-145); Triglycerides 98 mg/dL (< 150); eGFR For African Americans > 60 (> 60); eGFR For Non-African Americans > 60 (> 60)
[2019-06-02] MEDS: *HR* Heparin 5,000 UNIT/ML VIAL SQ SCH ×3 (06:29→22:10)
[2019-06-02] MEDS: Budesonide/Formoterol 160/4.5 1 PUFF INH IH SCH ×2 (07:56→20:36)
[2019-06-02] MEDS: Insulin LISPRO 300 UNITS/3 ML VIAL SQ SCH ×4 (08:10→22:03)
[2019-06-02] MEDS: Gabapentin 100 MG CAPSULE PO SCH ×2 (10:10→22:10)
[2019-06-02] MEDS: Pantoprazole 40 MG VIAL IVP SCH (10:10)
[2019-06-02] MEDS: Aspirin Enteric Coated 81 MG Tablet PO SCH (10:11)
[2019-06-02] MEDS: *HR* SitaGLIPtin 100 MG TABLET PO SCH (10:11)
[2019-06-02] MEDS: amLODIPine 5 MG TABLET PO SCH (10:11)
[2019-06-02] MEDS: Ipratropium/Albuterol Neb 3 ML IH SCH ×3 (11:31→20:36)
[2019-06-02] MEDS: Furosemide 20 MG TABLET PO SCH (12:46)
[2019-06-02] MEDS: *HR* HYDROcodone/Acet 7.5/325 mg TABLET PO PRN ×2 (12:46→20:21)
[2019-06-02] MEDS: traZODone 50 MG TABLET PO SCH (22:10)
[2019-06-03] MEDS: Ipratropium/Albuterol Neb 3 ML IH SCH ×7 (00:30→23:50)
[2019-06-03] MEDS: *HR* Heparin 5,000 UNIT/ML VIAL SQ SCH ×3 (06:12→21:08)
[2019-06-03] MEDS: Budesonide/Formoterol 160/4.5 1 PUFF INH IH SCH ×2 (07:47→19:30)
[2019-06-03] MEDS: amLODIPine 5 MG TABLET PO SCH (08:54)
[2019-06-03] MEDS: Gabapentin 100 MG CAPSULE PO SCH ×2 (08:54→21:07)
[2019-06-03] MEDS: Aspirin Enteric Coated 81 MG Tablet PO SCH (08:54)
[2019-06-03] MEDS: Furosemide 20 MG TABLET PO SCH (08:54)
[2019-06-03] MEDS: Pantoprazole 40 MG VIAL IVP SCH (08:55)
[2019-06-03] MEDS: *HR* SitaGLIPtin 100 MG TABLET PO SCH (08:55)
[2019-06-03] MEDS: Insulin LISPRO 300 UNITS/3 ML VIAL SQ SCH ×4 (08:55→21:00)
[2019-06-03 10:09] LABS: Estimated Average Glucose 105 mg/dl
[2019-06-03] MEDS ORDERED: GuaiFENesin/Dextromethorphan TABLET PO ONE (11:42)
[2019-06-03] MEDS: *HR* HYDROcodone/Acet 7.5/325 mg TABLET PO PRN (21:07)
[2019-06-03] MEDS: traZODone 50 MG TABLET PO SCH (21:08)
[2019-06-04] MEDS ORDERED: Acetaminophen 325 MG TABLET PO ONE (00:01)
[2019-06-04] MEDS: Ipratropium/Albuterol Neb 3 ML IH SCH ×4 (04:06→15:20)
[2019-06-04] MEDS: *HR* Heparin 5,000 UNIT/ML VIAL SQ SCH ×2 (06:03→13:11)
[2019-06-04] MEDS: Budesonide/Formoterol 160/4.5 1 PUFF INH IH SCH (07:24)
[2019-06-04] MEDS: Insulin LISPRO 300 UNITS/3 ML VIAL SQ SCH ×2 (08:30→12:43)
[2019-06-04] MEDS: Furosemide 20 MG TABLET PO SCH (08:43)
[2019-06-04] MEDS: Aspirin Enteric Coated 81 MG Tablet PO SCH (08:43)
[2019-06-04] MEDS: amLODIPine 5 MG TABLET PO SCH (08:44)
[2019-06-04] MEDS: Gabapentin 100 MG CAPSULE PO SCH (08:44)
[2019-06-04] MEDS: *HR* SitaGLIPtin 100 MG TABLET PO SCH (08:44)
[2019-06-04] MEDS: *HR* HYDROcodone/Acet 7.5/325 mg TABLET PO PRN (08:56)
[2019-06-04] MEDS ORDERED: Acetaminophen 325 MG TABLET PO PRN (13:11)
[2019-06-04 17:17] VITALS: BP 116/76
== END 2019-06-04 17:34 ==
LOC: EMEROOARM 15:21 → 3NENU 15:21 → SUATTDRO 06-01 02:15 → 3BNU 06-01 10:37
PROVIDERS: ADMIT Family Medicine; ATTEND Internal Medicine